=== PATIENT | female | born 1995 | race Caucasian/White ===

== ENCOUNTER 2019-04-24 01:36 | Emergency (ER) | payer MEDICAID ==
[~2019-04-24] VITALS: Ht 167.6 cm; Wt 173.3 kg
[2019-04-24 01:55] VITALS: Ht 167.6 cm; Wt 173.3 kg
[2019-04-24 04:44] VITALS: BP 158/75
== END 2019-04-24 04:44 | disposition home or self-care (01) ==
LOC: ED 01:36
DX: S61.411A Laceration without foreign body of right hand, initial encounter (principal); X58.XXXA Exposure to other specified factors, initial encounter; Y93.G1 Activity, food preparation and clean up; Y92.89 Other specified places as the place of occurrence of the external cause; Y99.8 Other external cause status
CPT/HCPCS: 90715; J2001